=== PATIENT | female | born 1995 | race Caucasian/White ===

== ENCOUNTER 2021-07-05 12:05 | Emergency (ER) | payer MEDICAID, OTHER ==
[2021-07-05 12:23] VITALS: BP 137/86
[2021-07-05] MEDS ORDERED: AMOX/CLAV 875 MG/125 MG TABLET PO STA (12:33)
--- NOTE | 2021-07-05 12:35 | ED Physician Documentation ---
History of Present Illness - Stated complaint Stated Complaint: L EAR PAIN - Chief complaint Chief Complaint: Heent - Additonal information Additional information: 26-year-old female presents the emergency department for evaluation of 3 days acute left ear pain. She is reporting a small amount of drainage. Occasionally uses Q-tips no new piercings. No fevers but she has pain extending from the ear down the left neck and has some significant lymphadenopathy. No history of recurrent ear infections. She appears exquisitely uncomfortable. Review of Systems Constitutional: reports: Chills, Myalgias. denies: Fever Eyes: reports: Reviewed and negative Ears: reports: Ear pain, Drainage/discharge Nose: reports: Reviewed and negative Throat: reports: Reviewed and negative Cardiac: reports: Reviewed and negative Respiratory: reports: Reviewed and negative GI: reports: Reviewed and negative : reports: Reviewed and negative Skin: reports: Reviewed and negative Neurologic: reports: Reviewed and negative Psychiatric: reports: Reviewed and negative PD PAST MEDICAL HISTORY - Present Medications Home Medications: Ambulatory Orders Medication Instructions Recorded Confirmed Amox/Clav 875/125 [Augmentin] 1 each PO Q12H #14 tablet 07/05/21 HYDROcod/ACETAM 5/325 [Tonasket 5/325] 1 tablet PO BID PRN #10 tablet 07/05/21 - Allergies Allergies/Adverse Reactions: Allergies Allergy/AdvReac Type Severity Reaction Status Date / Time No Known Drug Allergies Allergy Verified 07/05/21 12:23 PD ED PE EXPANDED - General General: Alert, In Pain - HEENT HEENT: Other (Left EAC 100% occluded. Unable to pass a wick into the ear canal. Moderate amount of purulent drainage exiting the canal. Visible external canal is erythematous.) - Neck Neck: Adenopathy (Tender left anterior cervical lymphadenopathy) - Cardiac Cardiac: Regular Rate, Radial strong equal - Respiratory Respiratory: Clear to ausultation caio. No: Distress, Labored Results - Vitals Vitals: Vital Signs - 24 hr 07/05/21 12:21 Temperature 37.4 C Heart Rate 104 H Respiratory 16 Rate Blood Pressure 137/86 H O2 Saturation 92 PD MEDICAL DECISION MAKING - ED course Complexity details: considered differential, d/w patient ED course: 26-year-old female presents emergency department for 3 days of acute left ear pain, swelling and purulent drainage. No history of similar in the past though she does occasionally use Q-tips. On exam she has a significant amount of cervical lymphadenopathy and enough tenderness that it limits the opening of her mouth though no true trismus. The ear canal is 100% occluded due to swelling and I would be unable to pass an ear wick into the canal. Given this patient will be started on oral antibiotics Augmentin, for the treatment of severe otitis externa as I do not feel that antibiotic drops would penetrate the canal. Limited amount of hydrocodone has been sent to the pharmacy for worsening pain symptoms. Emergent return precautions discussed for failure symptoms to resolve. Departure - Departure Disposition: 01 Home, Self Care Clinical Impression: Lymphadenopathy of left cervical region Otitis externa Qualifiers: Otitis externa type: unspecified type Chronicity: acute Laterality: left Qualified Code(s): H60.502 - Unspecified acute noninfective otitis externa, left ear Condition: Stable Record reviewed to determine appropriate education?: Yes Instructions: ED Otitis Media Acute Ch Prescriptions: Amox/Clav 875/125 [Augmentin] 1 each PO Q12H #14 tablet HYDROcod/ACETAM 5/325 [Tonasket 5/325] 1 tablet PO BID PRN #10 tablet PRN Reason: Pain Comments: Asha I am so sorry you are having this kind of ear pain. It looks as though you have a very bad ear canal infection. It is infected enough that the canal is swollen shut therefore I do not think antibiotic drops would work. Please fill the prescription for the Augmentin and begin taking twice daily as directed. In general you can take ibuprofen 600 mg with food 3 times a day or alternate Tylenol 500 mg with food for pain control. For severe pain I have sent a limited amount of hydrocodone to the pharmacy. With the antibiotics I would expect that you have the reduced pain and swelling over the next 48 to 72 hours. If despite the antibiotics you are having worsening pain, develop any fevers or have worsening swelling and redness of the ear then please return immediately to the ER for a second evaluation. Your prescriptions have been electronically sent to the [facility] I am prescribing a short course of narcotic pain medication for you. These are potentially dangerous and addictive medications that should be used carefully. These medications may constipate you. Take an [id number] stool softener (docusate) twice daily with plenty of water while taking these medications. If you go 24 hours without a bowel movement, take [id number] miralax, per package instructions. Do not drink or drive while taking these medications. If you received narcotic or sedating medications while in the emergency depart ment, do not drive for 24 hours. Store this medication in a safe, secure place and out of reach of children. It is a violation of federal law to give or sell this medication to another person or to use in a manner other than prescribed. The ED will not refill narcotic prescriptions, including prescriptions lost or stolen. To dispose of unwanted medications: 1. [facility] at [address] in [place] has a medication drop box. They accept prescription medications (in pill form) Wednesday through Wednesday 9:00 a.m. to 5:00 p.m. 2. The [facility] accepts prescription medications (in pill form only) for disposal year round. Call for more information. 3. Contact the [facility] for the next [facility] sponsored prescription drug collection event. , [phone], or [phone]; Note that many narcotic pain relievers also contain Tylenol/acetaminophen. Please ensure that your total dose of acetaminophen from all sources does not exceed 3 g (3000 mg) per day.
== END 2021-07-05 12:46 | disposition home or self-care (01) ==
LOC: ED 12:05
DX: H60.502 Unspecified acute noninfective otitis externa, left ear (principal); R59.0 Localized enlarged lymph nodes
CPT/HCPCS: 99282; A9270